=== PATIENT | male | born 1970 | race Caucasian/White ===

== ENCOUNTER 2024-02-06 23:19 | Observation (INO) | payer BC, SELFPAY ==
--- NOTE | ~2024-02-06 | MR_ITS ---
EXAMINATION: MR MRCP wo/w con/w 3D wo ind DATE: 02/08/2024 09:26 INDICATION: Abnormal CT scan with right-sided flank and abdominal pain. TECHNIQUE: Magnetic resonance imaging (MRI) of the abdomen was performed without and with 20 mL Multi stephan intravenous contrast. Sequences included coronal T2-weighted SS-FSE, coronal T2-weighted FS SS- FSE, coronal T2-weighted FS FIESTA, axial T2-weighted FS FIESTA, axial T2-weighted FIESTA, sagittal T 2-weighted SS-FSE, axial T1-weighted dual-echo FSPGR, axial T2-weighted SS-FSE, axial T1-weighted LAV A, axial T2-weighted STIR FSE. Thick-slab T2-weighted FRFSE-XL images were obtained for magnetic reso nance cholangiopancreatography (MRCP). Rotating maximum intensity projection 3-D reconstructions of t he volumetric data were created by the technologist. Postcontrast sequences included a time course of axial T1-weighted LAVA. COMPARISON: CT dated 02/07/2024 FINDINGS: ABDOMEN MRI: Small right pleural effusion with consolidation in the right lower lobe which could repr esent associated atelectasis and/or pneumonia. Additional regions of lung disease which could represe nt atelectasis or pneumonia at the posterior basilar left lower lobe and lingula. Heart size is chaitanya l. No pericardial effusion. There is diffuse hepatic steatosis with decreased signal on opposed phase imaging which spares 2 small regions of focal fatty sparing along the gallbladder fossa which corres pond with the 2 regions of slightly higher attenuation identified on the prior CT. No abnormally enha ncing hepatic lesions identified. Gallbladder, pancreas,, bilateral adrenal glands and left kidney ar e normal. 4 mm T2 hyperintense nonenhancing cyst in the right kidney. Splenomegaly measuring 16.6 cm in maximal length. Visualized portion of the bowels are unremarkable. No pathologically enlarged abdo bethany or upper pelvic lymphadenopathy. Bones are unremarkable with normal marrow signal throughout. ABDOMEN MRCP: Common bile duct is normal measuring 2 mm in maximal diameter. Normal intrahepatic biliary tree. No e vident cholelithiasis or choledocholithiasis. IMPRESSION: 1. Diffuse hepatic steatosis with 2 small nodular regions of focal fatty sparing along the gallbladde r fossa which correspond to the lesions of concern on prior CT. 2. Small right pleural effusion with associated right lower lobe pneumonia and/or atelectasis. Additi onal small region of pneumonia or more likely atelectasis at the dependent lingula and left lower lob e. 3. Nonspecific splenomegaly measuring 16.6 cm in length. Reviewed, dictated and finalized at location A. IMPRESSION: 1. Diffuse hepatic steatosis with 2 small nodular regions of focal fatty sparin g along the gallbladder fossa which correspond to the lesions of concern on dave or CT. 2. Small right pleural effusion with associated right lower lobe pneumonia and/ or atelectasis. Additional small region of pneumonia or more likely atelectasis at the dependent lingula and left lower lobe. 3. Nonspecific splenomegaly measuring 16.6 cm in length.
--- NOTE | ~2024-02-06 | US_ITS ---
EXAMINATION: US thoracentesis DATE: 02/07/2024 13:39 INDICATION: Left pleural effusion TECHNIQUE: The procedure and its risks and benefits were discussed with the patient. Potential risks discussed included bleeding, infection, and pneumothorax. The patient understood the risks and agreed to proceed. On conduit bender imaging there appeared to be a small subpulmonic component to the effusion. The overlying skin was prepped and draped in sterile fashion. 1% lidocaine was used for local anesthesia . On real-time imaging while administering the lidocaine there appear to be subtle echogenic structur es within what initially appeared to represent the pleural effusion. Color Doppler confirms presence of pulmonary vessels within the hypoechoic collapsed lung. Additional conduit bender ultrasound imaging was pe rformed which demonstrated only tiny right pleural effusion is positioned slightly medial to the scap argenis which measured only 4 mm in maximal thickness. Given the negligible amount of fluid the planned t horacentesis was canceled. FINDINGS/IMPRESSION: Ultrasound images demonstrate a tiny left pleural effusion which measure only up to 4 mm in maximal t hickness and therefore the planned thoracentesis was deferred. Reviewed, dictated and finalized at location A.
--- NOTE | ~2024-02-06 | CT_ITS ---
EXAMINATION: CTA chest PE protocol DATE: 02/07/2024 01:34 INDICATION: Shortness of breath. TECHNIQUE: Computed tomography (CT) pulmonary angiogram of the chest was performed with 100 mL Omnipa que-350 intravenous contrast. Additional 3D reconstructions utilizing coronal maximum intensity proje ction (MIP) were performed. Automated exposure control and iterative reconstruction technique were em ployed. The dose-length product was 774.00 mGy-cm. COMPARISON: None FINDINGS: No pulmonary embolism. Small right pleural effusion which appears partially loculated along the poste rolateral right lower lung. Groundglass opacity and patchy consolidation in the right lower lobe cons istent with pneumonia. There is also some right lower lobar basilar atelectasis along the diaphragm a s well some discoid atelectasis in the right middle lobe and lingula. No pulmonary edema. Heart size is normal. Atherosclerotic coronary artery calcification is. No pericardial effusion. Thoracic aorta is normal in caliber with no dissection. Likely reactive mild right hilar lymphadenopathy. Diffuse he patic steatosis with couple small nodular appearing regions of slightly higher attenuation along the gallbladder fossa, the larger measuring 2.6 x 2.0 cm. Mild thoracic spondylosis. IMPRESSION: 1. No pulmonary embolism. 2. Right lower lobe pneumonia with likely partially loculated small right pleural effusion. 3. Diffuse hepatic steatosis with couple small nodular regions of subtly higher attenuation along the gallbladder fossa most likely representing focal fatty sparing although differential would include h epatic neoplasm either benign or less likely malignant. Would recommend further evaluation with follo w-up pre and postcontrast MRI. Reviewed, dictated and finalized at location A. IMPRESSION: 1. No pulmonary embolism. 2. Right lower lobe pneumonia with likely partially loculated small right pleur al effusion. 3. Diffuse hepatic steatosis with couple small nodular regions of subtly higher attenuation along the gallbladder fossa most likely representing focal fatty s paring although differential would include hepatic neoplasm either benign or le ss likely malignant. Would recommend further evaluation with follow-up pre and postcontrast MRI.
--- NOTE | ~2024-02-06 | XR_ITS ---
EXAMINATION: XR chest 2V DATE: 02/07/2024 00:01 INDICATION: Shortness of breath and pneumonia TECHNIQUE: PA and lateral views of the chest were obtained. COMPARISON: Chest CT dated 02/06 is 24 FINDINGS: Opacities in the right mid and lower lung zone consistent with pneumonia. Small right pleural effusio n which appears loculated along the costophrenic angle. Left lung is clear. No pulmonary edema, pneum othorax or left-sided pleural effusion. Heart size is normal. IMPRESSION: 1. Right lower lobe pneumonia with small right pleural effusion. Reviewed, dictated and finalized at location A.
--- NOTE | 2024-02-06 23:29 | ECG_ITS ---
Measurements Intervals [place] Rate: 102 P: 7 NH: 128 QRS: 1 QRSD: 96 T: 29 QT: 368 QTc: 481 Interpretive Statements SINUS TACHYCARDIA VOLTAGE CRITERIA FOR LVH BORDERLINE ST-T WAVE ABNORMALITY- DIFFUSE LEADS BASELINE ARTIFACT- V4-V6 BORDERLINE ECG NO PREVIOUS ECG AVAILABLE FOR COMPARISON Electronically Signed On 02-07-2024 8:02:49 CDT by Ramsey Guzman D.O.
[2024-02-06 23:30] VITALS: BP 154/90; PULSE 100; RESP 18; TEMP 37; O2SAT 96
[2024-02-07] VITALS (46 sets, daily range): BP systolic 120–154; BP diastolic 67–98; PULSE 81–104; RESP 14–33; TEMP 36.6–37; O2SAT 91–99; BMI 44.4
[2024-02-07 00:08] LABS: Basophils Percent Auto 0.4 % (0.2-1.2); Eosinophils Absolute Auto 0.2 K/mm3 (0-0.3); Eosinophils Percent Auto 1.6 % (0-4.4); Hematocrit 41.9 % (42.0-52.0); Hemoglobin 14.8 g/dL (14.0-18.0); Immature Granulocyte Absolute 0.06 K/mm3 (0.00-0.031); Immature Granulocyte Percent A 0.6 % (0-0.5); Lymphocytes Absolute Auto 2.02 K/mm3 (0.9-3.2); Mean Corpuscular HGB Conc 35.3 g/dl (32-36); Mean Corpuscular Hemoglobin 34.1 pg (26-34); Mean Corpuscular Volume 96.5 fl (80-100); Mean Platelet Volume 9.3 fl (7.4-10.4); Monocytes Absolute Auto 0.7 K/mm3 (0.1-0.6); Monocytes Percent Auto 7.2 % (2.6-8.5); Neutrophils Absolute Auto 6.7 K/mm3 (1.3-6.7); Neutrophils Percent Auto 69.2 % (45.5-73.1); Platelet Count Result 248 k/mm3 (150-375); Red Blood Count 4.34 M/mm3 (4.6-6.20); Red Cell Distribution Width 11.9 % (11.5-14.5); White Blood Count 9.6 K/mm3 (4.5-10.0)
[2024-02-07] MEDS: IPRATROPIUM 0.5 MG/ALBUTEROL SULFATE 2.5 MG AMPUL.NEB 3 ML INHALATION ×4 (00:20→19:47)
[2024-02-07 00:25] LABS: Alanine Aminotransferase 36 U/L (6-50); Albumin Level 3.9 g/dL (3.5-5.1); Alkaline Phosphatase 102 U/L (38-126); Anion Gap 7 mmol/L (8-16); Aspartate Amino Transferase 38 U/L (17-59); Bilirubin,Total 0.9 mg/dL (0.2-1.3); Blood Urea Nitrogen 13 mg/dL (9-20); Calcium 9.5 mg/dL (8.4-10.2); Carbon Dioxide 31 mmol/L (22-30); Chloride 99 mmol/L (98-107); Estimated CRCL calculation 146 ml/min; Estimated Glomerular Filt Rate > 60; Glucose 289 mg/dL (65-110); Potassium 3.5 mmol/L (3.4-5.0); Sodium 137 mmol/L (137-145)
[2024-02-07] MEDS: MORPHINE SULFATE (*CRX) 4 MG/ML INJ IV PUSH ×6 (00:27→21:05)
[2024-02-07 00:41] LABS: Influenza A QL RT-PCR Negative (Negative); Influenza B QL RT-PCR Negative (Negative); RSV RNA, RT-PCR Negative (Negative); SARS-CoV-2 RNA PCR Negative (Negative)
--- NOTE | 2024-02-07 00:44 | ED.GENADULT ---
HPI - General Adult General Chief complaint: Shortness of Breath/Dyspnea Stated complaint: sob/cough Time Seen by Provider: 02/07/24 00:03 History of Present Illness HPI narrative: is a 53-year-old gentleman who presents emergency department with chief complaint of cough and shortness of breath. Patient reports he was in the hospital at [facility] was discharged on the 10th was discharged on Augmentin and doxycycline. The patient reports he has completed the antibiotics and reports he still continues to have cough and discomfort in his chest. The patient states that he feels as though he started to get worse again and is concerned that the pneumonia has not cleared Related Data Home Medications Medication Instructions Recorded Confirmed aspirin 81 mg tablet,delayed mg 02/07/24 release metformin 500 mg tablet,extended mg PO 02/07/24 release 24 hr pantoprazole 40 mg tablet,delayed mg PO 02/07/24 release Allergies Allergy/AdvReac Type Severity Reaction Status Date / Time No Known Allergies Allergy Verified 02/06/24 23:19 Review of Systems Review of Systems: A 10 system review of systems was completed on the patient and is negative except for what is stated in the HPI. Nursing and ancillary documentation was reviewed. [facility] Social History Social History Alcohol intake: current Exam Narrative: GENERAL: Well-appearing, well-nourished, and in no acute distress. HEAD: Normocephalic, atraumatic. EYES: PERRLA and EOMI. ENT: Nares clear, no rhinorrhea or epistaxis. Mucous membranes moist. NECK: Supple. CHEST: wheezes and crackles to auscultation. No respiratory distress. HEART: Regular rate and rhythm. No murmur heard. Normal peripheral pulses. ABDOMEN: Soft, nontender, nondistended, normal active bowel sounds. EXTREMITIES: Normal range of motion. No edema. SKIN: Warm, dry, no rash. NEURO: No focal deficits. Alert and oriented x3. PSYCH: Normal mood and affect. Course Vital Signs Vital signs: Vital Signs Temperature 37.0 C 02/06/24 23:30 Pulse Rate 100 02/06/24 23:30 Respiratory Rate 18 02/06/24 23:30 Blood Pressure 154/90 H 02/06/24 23:30 Pulse Oximetry 96 02/06/24 23:30 Oxygen Delivery Room Air 02/06/24 23:30 Temperature 37.0 C 02/06/24 23:30 Pulse Rate 93 02/07/24 04:45 Respiratory Rate 19 02/07/24 04:45 Blood Pressure 132/79 02/07/24 03:31 Pulse Oximetry 93 02/07/24 04:45 Oxygen Delivery Room Air 02/07/24 03:09 Medical Decision Making MDM Narrative Medical decision making narrative: differential diagnosis includes pneumonia, empyema, pulmonary embolism laboratory studies were obtained the patient showed a normal white count 9.6 electrolytes are within normal limits troponin was negative COVID flu and RSV were negative CT of the chest showed a right lower lobe pneumonia and a partially loculated pleural effusion Vital Signs Vital Signs: Vital Signs Temperature 37.0 C 02/06/24 23:30 Pulse Rate 100 02/06/24 23:30 Respiratory Rate 18 02/06/24 23:30 Blood Pressure 154/90 H 02/06/24 23:30 Pulse Oximetry 96 02/06/24 23:30 Oxygen Delivery Room Air 02/06/24 23:30 Temperature 37.0 C 02/06/24 23:30 Pulse Rate 93 02/07/24 04:45 Respiratory Rate 19 02/07/24 04:45 Blood Pressure 132/79 02/07/24 03:31 Pulse Oximetry 93 02/07/24 04:45 Oxygen Delivery Room Air 02/07/24 03:09 Lab Data 02/06/24 23:51 02/06/24 23:51 Labs: Lab Results 02/06/24 02/07/24 02/07/24 Range/Units 23:51 01:06 04:43 WBC 9.6 (4.5-10.0) K/mm3 RBC 4.34 L (4.6-6.20) M/mm3 Hgb 14.8 (14.0-18.0) g/dL Hct 41.9 L (42.0-52.0) % MCV 96.5 (80-100) fl MCH 34.1 H (26-34) pg MCHC 35.3 (32-36) g/dl RDW 11.9 (11.5-14.5) % Plt Count 248 (150-375) k/mm3 MPV 9.3 (7.4-10.4) fl
[2024-02-07 01:26] LABS: INR 1.1; Prothrombin Time 14.8 Seconds (11.1-14.7)
[2024-02-07 01:27] LABS: Partial Thromboplastin Time 36.7 Seconds (22.3-36.8)
[2024-02-07 01:29] LABS: Lactic Acid Reflex 2.7 mmol/L (0.7-2.0)
[2024-02-07 01:42] LABS: NT Pro B Type Natriuretic Pept < 20 pg/mL (19.9-100); Troponin I < 0.012 ng/mL (0.000-0.034)
[2024-02-07 01:47] LABS: Procalcitonin 0.5 ng/mL
[2024-02-07 04:13] LABS: Reflex Lactic Acid Yes or No Add Lactic
[2024-02-07 05:12] LABS: Troponin I < 0.012 ng/mL (0.000-0.034)
[2024-02-07] MEDS: CEFEPIME 2 GM/NS 50 ML 2 GM/50 ML BAG IVPB ×3 (06:11→20:58)
[2024-02-07] MEDS: VANCOMYCIN 1,250 MG/NS 250 ML 1,250 MG/250 ML BAG 166.67 MG IVPB ×2 (06:47→08:25)
[2024-02-07 08:03] LABS: MRSA (PCR) NOT DETECTED (NOT DETECTE)
--- NOTE | 2024-02-07 10:19 | ADMGEN ---
This patient, Zackery Miller, was admitted to Medical Room 249-01. Patient/family oriented to hospital policies and general routines including ID bracelet, bed and alarms, visiting hours, pain management, procedures, bathroom and other care routines, personal items, smoking policy, room service/diet, and visiting hours. Information on how to activate the Rapid Response Team has been discussed. Patient/Family are encouraged to report perceived risks to care and to ask questions if they do not understand what they are told or what they should do.
--- NOTE | 2024-02-07 15:53 | PM.IMHP ---
H&P: HPI History of Present Illness Date/Time: 02/07/24 1015 Chief Complaint: SOB/cough ongoing for 3 days Narrative: Patient is a 53-year-old male presented to the emergency department with complaint of cough and SOB, he reports recent discharge from outside hospital on the 30 January, citing he was discharged for PNA, states he was given Augmentin and doxycycline to continue at home. Patient reports compliance with home medication, he states although he finishes meds he still continued with ongoing chest discomfort with mild to moderate activity. He denies any recent travel, or close sick contacts. ED workup revealed: Patient with normal white count 9.6, electrolytes within normal limits, troponin was negative and viral PCR was negative as well. CT of chest did show right lower lobe PNA and partially loculated pleural effusion. Patient scheduled for thoracentesis this a.m. Review of Systems Review of Systems: All systems reviewed & are unremarkable except as noted in HPI and below PMFSH Social History Social History Smoking packs per day: 2 Smoking cigarettes per day: 40.0 Years smoked: 20 Smoking pack-years: 40.00 Smoking status: Former smoker Tobacco type: cigarettes Alcohol intake: former Substance use: former Substance use type: does not use and marijuana Do You Feel Safe in your Home?: Yes Lack of Transportation: No Lack of Food: Never True Current Housing: I Have Housing Concerned About Future Housing: No Difficulty Paying Gas/Electric Bills: No Difficulty Paying for Meds: No Currently Unemployed: No Education: High School Diploma/GED Difficulty w/ Childcare or Family Care: No Spiritual care concerns: No Meds Home Medications and Allergies Home Medications Medication Instructions Recorded Confirmed Type aspirin 81 mg tablet,delayed 81 mg PO DAILY 02/07/24 02/07/24 History release metformin 500 mg tablet,extended 500 mg PO BID 02/07/24 02/07/24 History release 24 hr pantoprazole 40 mg tablet,delayed 40 mg PO DAILY 02/07/24 02/07/24 History release Allergies Allergy/AdvReac Type Severity Reaction Status Date / Time No Known Allergies Allergy Verified 02/06/24 23:19 Vital Signs Vital Signs - 24 hr 02/06/24 23:30 02/07/24 00:05 02/07/24 00:05 Temperature 98.6 F Pulse Rate 100 100 Respiratory Rate 18 18 Blood Pressure 154/90 H 152/98 H Pulse Oximetry 96 97 97 Oxygen Delivery Room Air Room Air Fraction of Inspired Oxygen 02/07/24 00:20 02/07/24 00:25 02/07/24 03:09 Temperature Pulse Rate 102 H 101 H Respiratory Rate 23 H 21 H Blood Pressure Pulse Oximetry 97 Oxygen Delivery Room Air Fraction of Inspired Oxygen 02/07/24 00:04 02/07/24 00:05 02/07/24 00:18 Temperature Pulse Rate 102 H 102 H 104 H Respiratory Rate 14 26 H 33 H Blood Pressure 152/98 H Pulse Oximetry 96 95 95 Oxygen Delivery Fraction of Inspired Oxygen 02/07/24 00:30 02/07/24 00:47 02/07/24 01:10 Temperature Pulse Rate 101 H 100 98 Respiratory Rate 25 H 23 H 27 H Blood Pressure 154/89 H Pulse Oximetry 96 92 Oxygen Delivery Fraction of Inspired Oxygen 02/07/24 01:11 02/07/24 01:15 02/07/24 01:32 Temperature Pulse Rate 99 100 97 Respiratory Rate 26 H 19 26 H Blood Pressure Pulse Oximetry 93 94 96 Oxygen Delivery Fraction of Inspired Oxygen 02/07/24 01:51 02/07/24 02:01 02/07/24 02:15 Temperature Pulse Rate 97 99 101 H Respiratory Rate 22 H 23 H 23 H Blood Pressure Pulse Oximetry 94 94 Oxygen Delivery Fraction of Inspired Oxygen 02/07/24 02:44 02/07/24 02:45 02/07/24 03:00 Temperature Pulse Rate 93 95 95 Respiratory Rate 21 H 20 21 H Blood Pressure Pulse Oximetry Oxygen Delivery Fraction of Inspired Oxygen 02/07/24 03:18 02/07/24 03:30 02/07/24 03:31 Temperature Pulse Rate 96
[2024-02-07 17:36] LABS: Glucose Point of Care 242 mg/dl (65-105)
[2024-02-07] MEDS: VANCOMYCIN 1,500 MG/NS 500 ML 1,500 MG/500 ML BAG 250 MG IVPB (17:42)
[2024-02-07 20:11] LABS: Hemoglobin A1C 10.1 % (<5.7)
[2024-02-07] MEDS: INSULIN GLARGINE (*BKC) 100 UNITS/ML 10 UNITS SUB-Q (20:59)
[2024-02-07 21:26] LABS: Glucose Point of Care 217 mg/dl (65-105)
[2024-02-07 21:52] LABS: Glucose Point of Care 235 mg/dl (65-105)
[2024-02-08] VITALS (10 sets, daily range): BP systolic 125–131; BP diastolic 66–83; PULSE 81–88; RESP 17–22; TEMP 36.5–36.8; O2SAT 91–95
[2024-02-08] MEDS: MORPHINE SULFATE (*CRX) 4 MG/ML INJ IV PUSH ×2 (01:17→11:59)
[2024-02-08] MEDS: IPRATROPIUM 0.5 MG/ALBUTEROL SULFATE 2.5 MG AMPUL.NEB 3 ML INHALATION ×3 (03:00→20:35)
[2024-02-08] MEDS: CEFEPIME 2 GM/NS 50 ML 2 GM/50 ML BAG IVPB ×3 (05:12→21:21)
[2024-02-08 05:16] LABS: Basophils Percent Auto 0.6 % (0.2-1.2); Eosinophils Absolute Auto 0.1 K/mm3 (0-0.3); Hematocrit 37.1 % (42.0-52.0); Hemoglobin 12.8 g/dL (14.0-18.0); Immature Granulocyte Absolute 0.03 K/mm3 (0.00-0.031); Immature Granulocyte Percent A 0.4 % (0-0.5); Lymphocytes Absolute Auto 1.41 K/mm3 (0.9-3.2); Lymphocytes Percent Auto 19.7 % (18.3-44.2); Mean Corpuscular HGB Conc 34.5 g/dl (32-36); Mean Corpuscular Hemoglobin 33.6 pg (26-34); Mean Corpuscular Volume 97.4 fl (80-100); Mean Platelet Volume 9.1 fl (7.4-10.4); Monocytes Absolute Auto 0.5 K/mm3 (0.1-0.6); Monocytes Percent Auto 6.3 % (2.6-8.5); Neutrophils Absolute Auto 5.1 K/mm3 (1.3-6.7); Platelet Count Result 202 k/mm3 (150-375); Red Blood Count 3.81 M/mm3 (4.6-6.20); Red Cell Distribution Width 11.9 % (11.5-14.5); White Blood Count 7.1 K/mm3 (4.5-10.0)
[2024-02-08 05:39] LABS: Alanine Aminotransferase 26 U/L (6-50); Albumin Level 3.3 g/dL (3.5-5.1); Alkaline Phosphatase 73 U/L (38-126); Anion Gap 2 mmol/L (8-16); Aspartate Amino Transferase 27 U/L (17-59); Blood Urea Nitrogen 12 mg/dL (9-20); Calcium 8.4 mg/dL (8.4-10.2); Carbon Dioxide 31 mmol/L (22-30); Chloride 100 mmol/L (98-107); Estimated CRCL calculation 168 ml/min; Estimated Glomerular Filt Rate > 60; Glucose 187 mg/dL (65-110); Sodium 133 mmol/L (137-145)
[2024-02-08] MEDS: VANCOMYCIN 1,500 MG/NS 500 ML 1,500 MG/500 ML BAG 250 MG IVPB (07:30)
[2024-02-08 08:27] LABS: Glucose Point of Care 194 mg/dl (65-105)
[2024-02-08] MEDS: POTASSIUM CHLORIDE INJ 40 MEQ in SODIUM CHLORIDE 0.9% IV 500 ML 130 MEQ IVPB (09:33)
[2024-02-08] MEDS: ASPIRIN 81 MG ENTERIC TABLET PO (09:34)
[2024-02-08] MEDS: PANTOPRAZOLE 40 MG TABLET PO (09:34)
[2024-02-08 11:47] LABS: Glucose Point of Care 238 mg/dl (65-105)
[2024-02-08] MEDS: INSULIN ASPART (*BKC) 100 UNITS/ML 7 UNITS SUB-Q ×2 (11:56→17:19)
--- NOTE | 2024-02-08 12:35 | WPDGICN ---
Assessment and Plan Assessment and plan (1) Hepatic steatosis: Code(s): K76.0 - Fatty (change of) liver, not elsewhere classified Status: Acute Assessment and Plan: -CT noted hepatic steatosis with 2 concerning nodular areas along the gallbladder fossa, follow-up MRCP completed that showed it was consistent with fatty sparing and there is no concern for neoplasm. -LFT and platelets are normal. -fatty liver is probably secondary to metabolic syndrome from obesity and diabetes there could be a component of alcohol as well. -discussed with him etiology of fatty liver and risk for cirrhosis and liver cancer. -recommend low-fat diet, keeping blood sugars well controlled and exercise discussed. -he will need follow-up in our office every 6 months with periodic ultrasounds and monitoring of liver enzymes and platelets. Will recommend fibroscan outpatient as well, which we can arrange -Avoid alcohol (2) Pneumonia: Code(s): J18.9 - Pneumonia, unspecified organism Status: Acute (3) Pleural effusion: Code(s): J90 - Pleural effusion, not elsewhere classified Status: Acute (4) Obesity: Code(s): E66.9 - Obesity, unspecified Status: Acute (5) Diabetes: Code(s): E11.9 - Type 2 diabetes mellitus without complications Status: Acute (6) Colon cancer screening: Code(s): Z12.11 - Encounter for screening for malignant neoplasm of colon Status: Acute Assessment and Plan: Colonoscopy recommended for screening to be completed outpatient. GI Consult Note Consult date/time: 02/08/24 12:20 Reason for consult: hepatic steatosis HPI: Zackery Miller is a 53 year old male asked to be seen at the request of the hospitalist for hepatic steatosis. Past history of diabetes. Presented to the emergency room 02/07/24 for complaints of cough and shortness of breath with a recent diagnosis of pneumonia treated with Augmentin and doxycycline. CTA completed here at [facility] noted right lower lobe pneumonia with likely partial showing loculated small right pleural effusion-diffuse hepatic steatosis couple small nodular regions along the gallbladder fossa that could be fatty liver or hepatic neoplasm and recommended an MRI. MRCP with diffuse hepatic steatosis with 2 small nodular regions of focal fatty sparing along the gallbladder fossa which corresponds to the lesions of concern on prior CT (recs reviewed)-mild nonspecific splenomegaly (recs reviewed). He has been a diabetic for about 2 years. He used to drink alcohol to the point he would pass out almost nightly and has not drink of alcohol for at least 2 years. He has never been told he had fatty liver in the past. No family history of chronic liver diseases. He does report heartburn intermittently. Patient denies any change in bowel habits, constipation, diarrhea, melena, hematochezia, or abdominal pain. Patient denies any nausea, vomiting, dysphagia, odynophagia, early satiety, weight loss, fevers, or appetite loss. He has never had an EGD or colonoscopy. No family history of GI malignancies. Has some pain in left chest. He feels like cough and SOB is improving. Review of Systems Constitutional: Constitutional: Denies headache(s) and Denies weakness Eyes: Eyes: Denies blurry vision ENT: Reports Normal hearing present, Denies headache(s) and Denies neck pain Cardiovascular: Cardiovascular: Denies chest pain and Denies dyspnea Respiratory: Respiratory: Denies dyspnea Gastrointestinal: Gastrointestinal: Reports no additional gastrointestinal complaints Genitourinary: Genitourinary: Denies dysuria Musculoskeletal: Musculoskeletal: Denies neck pain Integumentary/Breasts: Skin/Breast: Denies dry skin Neurologic: Reports Normal hearing present, Denies headache(s) and Denies weakness Psychiatric: Psychiatric: Denies anxiety Endocrine: Endocrine: Denies change in body appearance Hematologic/Lymphatic: He
--- NOTE | 2024-02-08 15:39 | PM.IMPN ---
Progress Note: A&P Assessment and Plan (1) Pneumonia: Code(s): J18.9 - Pneumonia, unspecified organism Status: Acute Assessment and Plan: prevously treated at outside facility with Augmentin and doxy for PNA CXR showed Right lower lobe PNA/small right pleural effusion incentive spirometry while awake sputum culture ordered influenza/COVID/RSV negative continue antibiotic therapy cefepime d/c vanc as MRSA negative BC pending with NGTD Duonebs Q6 (2) Pleural effusion: Code(s): J90 - Pleural effusion, not elsewhere classified Status: Acute Assessment and Plan: as evidenced by CT scan: ?Right lower lobe pneumonia with likely partially loculated small right pleural effusion. thoracocentesis deferred continue to monitor (3) Hepatic steatosis: Code(s): K76.0 - Fatty (change of) liver, not elsewhere classified Status: Acute Assessment and Plan: unknown etiology, as evidenced by CT scan, hepatic steatosis/small nodular regions of subtly higher attenuation along the gallbladder, concern for hepatic neoplasm GI following, MRCP today showed consistent with fatty liver recommend low-fat diet, keeping blood sugars well controlled and exercise he will need follow-up with GI every 6 months with periodic ultrasounds and monitoring of liver enzymes and platelets. recommend fibroscan and colonoscopy outpatient (4) Diabetes: Code(s): E11.9 - Type 2 diabetes mellitus without complications Status: Chronic Assessment and Plan: -hold metformin -accuchecks, hypoglycemic protocol -A1c 10.1 -SSI per protocol -Insulin glargine 10 units HS Time Spent With Patient Time with patient: less than 15 minutes Subjective Date/time seen: 02/08/24 15:39 Interval history: Patient denies SOB or chest pain this morning. He is in no acute distress, satting fine on room air. GI following and will follow outpatient. Will continue cefepime at this time and plan to transition to PO for d/c planning. Mild hyperkalemia today, repleted with IV and will continue to monitor. Review of Systems Review of Systems: All systems reviewed & are unremarkable except as noted in HPI and below Exam Narrative: GENERAL: Well-appearing, well-nourished, and in no acute distress HEAD: Normocephalic, atraumatic. EYES: PERRLA and EOMI. ENT: Mucous membranes moist. NECK: Supple. CHEST: Mild wheezes in lower lobes, otherwise clear to auscultation. No respiratory distress. HEART: RRR. No murmur heard. Normal peripheral pulses. ABDOMEN: Soft, nontender, nondistended, normal active bowel sounds. EXTREMITIES: Normal range of motion. No edema. SKIN: Warm, dry, no rash. NEURO: No focal deficits. Alert and oriented x3. PSYCH: Normal mood and affect. Objective Data Vital Signs Vital Signs: Vital Signs - 24 hr 02/07/24 19:49 02/07/24 19:50 02/07/24 19:56 Temperature Pulse Rate 81 83 Respiratory Rate 20 20 Blood Pressure Pulse Oximetry 92 Oxygen Delivery Room Air Fraction of Inspired Oxygen 21 02/07/24 20:35 02/07/24 20:00 02/08/24 03:00 Temperature 98.5 F Pulse Rate 89 89 86 Respiratory Rate 18 18 20 Blood Pressure 123/74 Pulse Oximetry 92 92 Oxygen Delivery Room Air Fraction of Inspired Oxygen 21 02/08/24 03:09 02/08/24 06:00 02/08/24 07:50 Temperature 98.0 F Pulse Rate 85 88 Respiratory Rate 20 18 Blood Pressure 130/70 Pulse Oximetry 91 Oxygen Delivery Room Air Fraction of Inspired Oxygen 02/08/24 13:38 02/08/24 13:40 02/08/24 13:53 Temperature Pulse Rate 83 84 Respiratory Rate 20 20 Blood Pressure Pulse Oximetry 91 Oxygen Delivery Room Air Fraction of Inspired Oxygen 02/08/24 14:00 Temperature 97.7 F Pulse Rate 81 Respiratory Rate 22 H Blood Pressure 125/66 Pulse Oximetry 95 Oxygen Delivery Fraction of Inspired Oxygen Intake/Output Intake/Output: Intake &
[2024-02-08 17:00] LABS: Glucose Point of Care 215 mg/dl (65-105)
[2024-02-08] MEDS: ACETAMINOPHEN 325 MG TABLET 650 MG PO (19:30)
[2024-02-08 20:50] LABS: Glucose Point of Care 202 mg/dl (65-105)
[2024-02-08] MEDS: INSULIN GLARGINE (*BKC) 100 UNITS/ML 10 UNITS SUB-Q (21:22)
[2024-02-09] VITALS (11 sets, daily range): BP systolic 120–137; BP diastolic 82–84; PULSE 73–91; RESP 16–20; TEMP 36.2–37.2; O2SAT 93–95
[2024-02-09] MEDS: IPRATROPIUM 0.5 MG/ALBUTEROL SULFATE 2.5 MG AMPUL.NEB 3 ML INHALATION ×4 (02:25→19:39)
[2024-02-09] MEDS: CEFEPIME 2 GM/NS 50 ML 2 GM/50 ML BAG IVPB (05:25)
[2024-02-09 05:57] LABS: Basophils Percent Auto 0.2 % (0.2-1.2); Eosinophils Absolute Auto 0.1 K/mm3 (0-0.3); Eosinophils Percent Auto 2.2 % (0-4.4); Hemoglobin 12.7 g/dL (14.0-18.0); Immature Granulocyte Absolute 0.02 K/mm3 (0.00-0.031); Immature Granulocyte Percent A 0.4 % (0-0.5); Lymphocytes Absolute Auto 1.37 K/mm3 (0.9-3.2); Mean Corpuscular HGB Conc 35.3 g/dl (32-36); Mean Corpuscular Hemoglobin 33.8 pg (26-34); Mean Corpuscular Volume 95.7 fl (80-100); Mean Platelet Volume 9.1 fl (7.4-10.4); Monocytes Absolute Auto 0.4 K/mm3 (0.1-0.6); Monocytes Percent Auto 7.7 % (2.6-8.5); Neutrophils Absolute Auto 3.2 K/mm3 (1.3-6.7); Neutrophils Percent Auto 62.5 % (45.5-73.1); Platelet Count Result 214 k/mm3 (150-375); Red Blood Count 3.76 M/mm3 (4.6-6.20); Red Cell Distribution Width 11.7 % (11.5-14.5); White Blood Count 5.1 K/mm3 (4.5-10.0)
[2024-02-09 06:09] LABS: Alanine Aminotransferase 24 U/L (6-50); Albumin Level 3.1 g/dL (3.5-5.1); Alkaline Phosphatase 76 U/L (38-126); Anion Gap 4 mmol/L (8-16); Aspartate Amino Transferase 30 U/L (17-59); Bilirubin,Total 0.7 mg/dL (0.2-1.3); Blood Urea Nitrogen 9 mg/dL (9-20); Calcium 8.3 mg/dL (8.4-10.2); Carbon Dioxide 30 mmol/L (22-30); Chloride 102 mmol/L (98-107); Estimated CRCL calculation 168 ml/min; Estimated Glomerular Filt Rate > 60; Glucose 170 mg/dL (65-110); Potassium 3.2 mmol/L (3.4-5.0); Sodium 136 mmol/L (137-145)
[2024-02-09 07:46] LABS: Glucose Point of Care 181 mg/dl (65-105)
[2024-02-09] MEDS: ENOXAPARIN 40 MG/0.4 ML SYRINGE SUB-Q (10:48)
[2024-02-09] MEDS: ASPIRIN 81 MG ENTERIC TABLET PO (10:48)
[2024-02-09] MEDS: PANTOPRAZOLE 40 MG TABLET PO (10:48)
[2024-02-09] MEDS: INSULIN ASPART (*BKC) 100 UNITS/ML 7 UNITS SUB-Q ×3 (10:48→18:32)
[2024-02-09] MEDS: POTASSIUM CHLORIDE 20 MEQ PACKET (FOR LIQUID) 40 MEQ PO (11:08)
[2024-02-09 12:06] LABS: Glucose Point of Care 252 mg/dl (65-105)
--- NOTE | 2024-02-09 13:38 | PM.IMPN ---
Progress Note: A&P Assessment and Plan (1) Pneumonia: Code(s): J18.9 - Pneumonia, unspecified organism Status: Acute Assessment and Plan: prevously treated at outside facility with Augmentin and doxy for PNA CXR showed Right lower lobe PNA/small right pleural effusion incentive spirometry while awake sputum culture ordered influenza/COVID/RSV negative transitioned to PO cefdinir d/c vanc as MRSA negative BC pending with NGTD Duonebs Q6 (2) Pleural effusion: Code(s): J90 - Pleural effusion, not elsewhere classified Status: Acute Assessment and Plan: as evidenced by CT scan: ?Right lower lobe pneumonia with likely partially loculated small right pleural effusion. thoracocentesis deferred continue to monitor (3) Hepatic steatosis: Code(s): K76.0 - Fatty (change of) liver, not elsewhere classified Status: Acute Assessment and Plan: unknown etiology, as evidenced by CT scan, hepatic steatosis/small nodular regions of subtly higher attenuation along the gallbladder, concern for hepatic neoplasm GI following, MRCP today showed consistent with fatty liver recommend low-fat diet, keeping blood sugars well controlled and exercise he will need follow-up with GI every 6 months with periodic ultrasounds and monitoring of liver enzymes and platelets. recommend fibroscan and colonoscopy outpatient (4) Diabetes: Code(s): E11.9 - Type 2 diabetes mellitus without complications Status: Chronic Assessment and Plan: -hold metformin -accuchecks, hypoglycemic protocol -A1c 10.1 -SSI per protocol -Insulin glargine 10 units HS Subjective Date/time seen: 02/09/24 13:38 Interval history: Patient denies SOB or chest pain this morning. He is in no acute distress, satting fine on room air. GI following and will follow outpatient. Transition to PO Cefdinir. Mild hyperkalemia again today, repleted with PO and will continue to monitor. BC still pending with no growth, plan for d/c tomorrow if remains stable. Review of Systems Review of Systems: All systems reviewed & are unremarkable except as noted in HPI and below Exam Narrative: GENERAL: Well-appearing, well-nourished, and in no acute distress HEAD: Normocephalic, atraumatic. EYES: PERRLA and EOMI. ENT: Mucous membranes moist. NECK: Supple. CHEST: Mild wheezes in lower lobes, otherwise clear to auscultation. No respiratory distress. HEART: RRR. No murmur heard. Normal peripheral pulses. ABDOMEN: Soft, nontender, nondistended, normal active bowel sounds. EXTREMITIES: Normal range of motion. No edema. SKIN: Warm, dry, no rash. NEURO: No focal deficits. Alert and oriented x3. PSYCH: Normal mood and affect. Objective Data Vital Signs Vital Signs: Vital Signs - 24 hr 02/08/24 13:40 02/08/24 13:53 02/08/24 14:00 Temperature 97.7 F Pulse Rate 84 81 Respiratory Rate 20 22 H Blood Pressure 125/66 Pulse Oximetry 91 95 Oxygen Delivery Room Air Fraction of Inspired Oxygen 02/08/24 20:42 02/08/24 20:35 02/08/24 20:48 Temperature 98.2 F Pulse Rate 86 86 86 Respiratory Rate 17 20 20 Blood Pressure 131/83 Pulse Oximetry 94 Oxygen Delivery Fraction of Inspired Oxygen 02/08/24 20:00 02/09/24 02:25 02/09/24 02:25 Temperature Pulse Rate 81 Respiratory Rate 16 Blood Pressure Pulse Oximetry 93 Oxygen Delivery Room Air Room Air Fraction of Inspired Oxygen 02/09/24 02:31 02/09/24 05:26 02/09/24 07:43 Temperature 99 F Pulse Rate 86 79 Respiratory Rate 16 18 Blood Pressure 137/84 Pulse Oximetry 94 93 Oxygen Delivery Room Air Fraction of Inspired Oxygen 21 02/09/24 07:43 02/09/24 07:51 02/09/24 13:30 Temperature 98.0 F Pulse Rate 78 81 73 Respiratory Rate 18 18 18 Blood Pressure 120/82 Pulse Oximetry 95 Oxygen Delivery Fraction of Inspired Oxygen Intake/Output Intake/Output: In
[2024-02-09 17:10] LABS: Glucose Point of Care 197 mg/dl (65-105)
[2024-02-09 20:55] LABS: Glucose Point of Care 389 mg/dl (65-105)
[2024-02-09] MEDS: CEFDINIR 300 MG CAPSULE PO (21:13)
[2024-02-09] MEDS: INSULIN GLARGINE (*BKC) 100 UNITS/ML 10 UNITS SUB-Q (21:13)
[2024-02-10 01:13] VITALS: PULSE 71; RESP 16
[2024-02-10] MEDS: IPRATROPIUM 0.5 MG/ALBUTEROL SULFATE 2.5 MG AMPUL.NEB 3 ML INHALATION ×2 (01:13→09:06)
[2024-02-10 01:26] VITALS: PULSE 74; RESP 16
[2024-02-10 04:49] VITALS: BP 115/57; PULSE 58; RESP 18; TEMP 36.2; O2SAT 94
[2024-02-10 06:07] LABS: Basophils Percent Auto 0.4 % (0.2-1.2); Eosinophils Absolute Auto 0.1 K/mm3 (0-0.3); Eosinophils Percent Auto 1.5 % (0-4.4); Hemoglobin 12.6 g/dL (14.0-18.0); Immature Granulocyte Absolute 0.02 K/mm3 (0.00-0.031); Immature Granulocyte Percent A 0.4 % (0-0.5); Lymphocytes Percent Auto 35.7 % (18.3-44.2); Mean Corpuscular Hemoglobin 33.5 pg (26-34); Mean Corpuscular Volume 95.7 fl (80-100); Mean Platelet Volume 8.9 fl (7.4-10.4); Monocytes Absolute Auto 0.4 K/mm3 (0.1-0.6); Monocytes Percent Auto 8.8 % (2.6-8.5); Neutrophils Absolute Auto 2.5 K/mm3 (1.3-6.7); Neutrophils Percent Auto 53.2 % (45.5-73.1); Platelet Count Result 248 k/mm3 (150-375); Red Blood Count 3.76 M/mm3 (4.6-6.20); Red Cell Distribution Width 11.6 % (11.5-14.5); White Blood Count 4.8 K/mm3 (4.5-10.0)
[2024-02-10 06:29] LABS: Alanine Aminotransferase 27 U/L (6-50); Albumin Level 3.2 g/dL (3.5-5.1); Alkaline Phosphatase 80 U/L (38-126); Anion Gap 4 mmol/L (8-16); Aspartate Amino Transferase 33 U/L (17-59); Bilirubin,Total 0.7 mg/dL (0.2-1.3); Blood Urea Nitrogen 9 mg/dL (9-20); Calcium 8.4 mg/dL (8.4-10.2); Carbon Dioxide 31 mmol/L (22-30); Chloride 102 mmol/L (98-107); Estimated CRCL calculation 198 ml/min; Estimated Glomerular Filt Rate > 60; Glucose 178 mg/dL (65-110); Potassium 3.3 mmol/L (3.4-5.0); Sodium 137 mmol/L (137-145)
[2024-02-10 07:45] LABS: Magnesium 2.1 mg/dL (1.6-2.3)
[2024-02-10 07:49] LABS: Glucose Point of Care 171 mg/dl (65-105)
[2024-02-10 09:07] VITALS: PULSE 74; RESP 16; O2SAT 94
[2024-02-10 09:17] VITALS: PULSE 80; RESP 16
[2024-02-10] MEDS: ASPIRIN 81 MG ENTERIC TABLET PO (09:39)
[2024-02-10] MEDS: PANTOPRAZOLE 40 MG TABLET PO (09:39)
[2024-02-10] MEDS: POTASSIUM CHLORIDE 20 MEQ ER TABLET 40 MEQ PO (09:39)
[2024-02-10] MEDS: CEFDINIR 300 MG CAPSULE PO (09:39)
--- NOTE | 2024-02-10 10:47 | PM.DS ---
DS: Admitting Diagnosis Discharge Date 3-20 Admitting Diagnosis pneumonia DS: Discharge Diagnosis Discharge Diagnosis (1) Pneumonia: Code(s): J18.9 - Pneumonia, unspecified organism Status: Acute Assessment and Plan: prevously treated at outside facility with Augmentin and doxy for PNA CXR showed Right lower lobe PNA/small right pleural effusion incentive spirometry while awake sputum culture ordered influenza/COVID/RSV negative transitioned to PO cefdinir d/c vanc as MRSA negative BC pending with NGTD Duonebs Q6 (2) Pleural effusion: Code(s): J90 - Pleural effusion, not elsewhere classified Status: Acute Assessment and Plan: as evidenced by CT scan: ?Right lower lobe pneumonia with likely partially loculated small right pleural effusion. thoracocentesis deferred continue to monitor (3) Hepatic steatosis: Code(s): K76.0 - Fatty (change of) liver, not elsewhere classified Status: Acute Assessment and Plan: unknown etiology, as evidenced by CT scan, hepatic steatosis/small nodular regions of subtly higher attenuation along the gallbladder, concern for hepatic neoplasm GI following, MRCP today showed consistent with fatty liver recommend low-fat diet, keeping blood sugars well controlled and exercise he will need follow-up with GI every 6 months with periodic ultrasounds and monitoring of liver enzymes and platelets. recommend fibroscan and colonoscopy outpatient (4) Diabetes: Code(s): E11.9 - Type 2 diabetes mellitus without complications Status: Chronic Assessment and Plan: -hold metformin -accuchecks, hypoglycemic protocol -A1c 10.1 -SSI per protocol -Insulin glargine 10 units HS DS: Summary Hospital Course Reason for hospitalization: pneumonia Hospital Course: Patient is a 53-year-old male presented to the emergency department with complaint of cough and SOB, he reports recent discharge from outside hospital on the 30 January, citing he was discharged for PNA, states he was given Augmentin and doxycycline to continue at home.? Patient reports compliance with home medication, he states although he finishes meds he still continued with ongoing chest discomfort with mild to moderate activity.? He denies any recent travel, or close sick contacts. ED workup revealed:? Patient with normal white count 9.6, electrolytes within normal limits, troponin was negative and viral PCR was negative as well.? CT of chest did show right lower lobe PNA and partially loculated pleural effusion.? Patient scheduled for thoracentesis this a.m. patient was admitted received treatment with IV antibiotics for pneumonia. He was transition to oral cefdinir. Today he is seen resting in bed in no acute distress. He states his shortness of breath has completely resolved, he has no chest pain. He denies dizziness, headache, nausea, vomiting, constipation, diarrhea, fever or chills. He states he feels much improved than when he 1st presented. Labs and vital signs reviewed and are stable. He is safe to discharge home today With oral antibiotic therapy. GI recs: -CT noted hepatic steatosis with 2 concerning nodular areas along the gallbladder fossa, follow-up MRCP completed that showed it was consistent with fatty sparing and there is no concern for neoplasm. -LFT and platelets are normal. -fatty liver is probably secondary to metabolic syndrome from obesity and diabetes there could be a component of alcohol as well. -discussed with him etiology of fatty liver and risk for cirrhosis and liver cancer. -recommend low-fat diet, keeping blood sugars well controlled and exercise discussed. -he will need follow-up in our office every 6 months with periodic ultrasounds and monitoring of liver enzymes and platelets. Will recommend fibroscan outpatient as well, which we can arrange -Avoid alcohol Status at Discharge Cognitive/behavioral status at disc
[2024-02-10 12:03] LABS: Glucose Point of Care 252 mg/dl (65-105)
[2024-02-10] MEDS: INSULIN ASPART (*BKC) 100 UNITS/ML 7 UNITS SUB-Q (12:23)
== END 2024-02-10 13:55 | disposition home or self-care (01) ==
LOC: ANHED 02-07 05:55 → ANH2MED 02-07 07:32
PROVIDERS: Nurse Practitioner; Nurse Practitioner Acute Care; Admitting Provider Internal Medicine; Emergency Provider Emergency Medicine; PCP Family Medicine; Visit Provider Internal Medicine
DX: J18.9 Pneumonia, unspecified organism (principal); J90 Pleural effusion, not elsewhere classified; K76.0 Fatty (change of) liver, not elsewhere classified; E11.9 Type 2 diabetes mellitus without complications; R00.0 Tachycardia, unspecified; E87.5 Hyperkalemia; E66.9 Obesity, unspecified; Z68.41 Body mass index [BMI] 40.0-44.9, adult; Z20.822 Contact with and (suspected) exposure to COVID-19; Z87.891 Personal history of nicotine dependence; Z79.82 Long term (current) use of aspirin; Z79.84 Long term (current) use of oral hypoglycemic drugs; Z79.899 Other long term (current) drug therapy
CPT/HCPCS: 32555; 36415; 71046; 71275; 74183; 76376; 80053; 82948; 83036; 83605; 83735; 83880; 84145; 84484; 85025; 85610; 85730; 87040; 87637; 87641; 93005; 94640; 96365; 96367; 96375; 96376; 99285; A9270; A9577; G0378; J0692; J1650; J1815; J2270; J3370; J3480; J7040; Q9967